=== PATIENT | male | born 1985 | race African-American/Black ===

== ENCOUNTER 2016-05-02 08:33 | Emergency (ER) | payer BC ==
[2016-05-02 08:46] VITALS: TEMP 97.9; BMI 33.1
[2016-05-02] MEDS ORDERED: HYDROmorphone 1 MG INJECTION IV ONE (09:02)
[2016-05-02] MEDS ORDERED: ONDANSETRON HCL 4 MG/2 ML VIAL IV ONE (09:02)
[2016-05-02] MEDS ORDERED: ONDANSETRON HCL 4 MG/2 ML VIAL IV PRN (09:03)
[2016-05-02] MEDS ORDERED: NS 1,000 ML IV ONE (09:03)
[2016-05-02] MEDS ORDERED: HYDROmorphone 1 MG INJECTION IV PRN (09:03)
--- NOTE | 2016-05-02 09:07 | EDPRACDOC ---
- General Information Chief Complaint: Abdominal Pain Stated Complaint: ABD PAIN Time Seen by Provider: 05/02/16 08:56 Information Source: Patient Mode Of Arrival: Car Home Medications: Home Medications Ketorolac Tromethamine 10 mg PO Q6H PRN #20 tab 05/02/16 Allergies/Adverse Reactions: Allergies Allergy/AdvReac Type Severity Reaction Status Date / Time No Known Allergies Allergy Verified 05/02/16 08:46 - History of Present Illness Onset: SEVERAL MONTHS Pain Location: Reports: Diffuse Pain Context: Reports: Spontaneous Pain Severity: Mild Pain Quality: Reports: Aching Adult Abdominal History: Reports: Abdominal Surgery Modifying Factors: improves with: Nothing Oral Intake: Normal Urinary Output: Normal ED Past Medical History - History Reviewed Yes Nurses notes reviewed and agree except as marked - Patient Medical History Respiratory History: Reports: Asthma (DOES NOT USE INHALERS) GI/ History: Reports: Gastroesophageal Reflux Musculoskeletal History: Reports: Arthritis (KNEES) - Family Medical History Reports: Hypertension (FATHER), Diabetes (FATHER), Cancer (MOTHER BREAST). Denies: Stroke, Cardiac Disorders - Social Medical History Smoking Status: Never smoker EDM Review of Systems - Review of Systems ROS Negative Except as Marked: Yes All systems reviewed and were negative except as marked - Physical Exam Constitutional: Alert (Awake), No apparent distress Oriented to: Time, Person, Place Last recorded Vital Signs: Last Vital Signs Temp 97.9 F 05/02/16 08:43 Pulse 68 05/02/16 10:30 Resp 16 05/02/16 10:30 BP 138/64 05/02/16 10:30 Pulse Ox 95 05/02/16 10:30 Oxygen Pulse Oxygen Saturation 95 O2 Device Room Air Oxygen Flow Rate Fraction of Inspired Oxygen ( FIO2) - HEENT Head: Normal ( normocephalic) Eye Exam: Normal (PERRL, EOMI, Sclera white) Oropharynx: Normal (Pharynx:Moist without exudate,Gums-no swelling) Tympanic Membrane: Normal ENT EAC: Normal TMJ: Normal Nose: No Symptoms Reported (septum midline) Neck: Normal (FROM, trachea at midline) - Respiratory/Cardiovascular Respiratory: Normal - CTA (BBS clear to auscultation without adventitious sounds ) Cardiovascular: Normal (RRR without murmur, gallop or rub) - GI Auscultation: Normal (NABS) Palpation: Normal (Soft,No rebound or guarding, non distended) Tenderness: Non tender Arriaga's Sign: Negative - Musculoskeletal Back: Normal (Non-Tender) Extremities: Normal (Normal tone, Pulses 2+ No cyanosis or edema, FROM) - Integumentary Skin: Normal, Warm, Dry Lymphatics: Normal (no adenopathy) - Neurologic Memory Impaired: Normal Motor Function: Normal (Normal tone, Pulses 2+ No cyanosis or edema, FROM) Cranial Nerve: Normal (CN II-X11 intact sensation, strength 5/5) Cerebellar: Normal Mood Description: Normal Perception: Normal - Results 05/02/16 08:58 05/02/16 08:58 WBC 5.5 xk/uL (3.8-10.8) 05/02/16 08:58 RBC 5.18 xM/uL (4.70-6.10) 05/02/16 08:58 Hgb 14.9 g/dL (14.0-18.0) 05/02/16 08:58 Hct 44.7 % (42-52) 05/02/16 08:58 MCV 86 fL (80-94) 05/02/16 08:58 MCH 28.8 pg (27-32) 05/02/16 08:58 MCHC 33.4 g/dl (33-36) 05/02/16 08:58 RDW 14.1 % (11.5-14.5) 05/02/16 08:58 Plt Count 240 xk/uL (130-400) 05/02/16 08:58 MPV 9.1 fL (7.4-10.4) 05/02/16 08:58 Neut % (Auto) 60.2 % (45-76) 05/02/16 08:58 Lymph % (Auto) 29.7 % (17-44) 05/02/16 08:58 [place] % (Auto) 6.7 % (3-10) 05/02/16 08:58 Eos % (Auto) 2.9 % (0-5) 05/02/16 08:58 Baso % (Auto) 0.5 % (0-2) 05/02/16 08:58 Absolute Neuts (auto) 3.30 xk/uL (1.7-8.2) 05/02/16 08:58 Absolute Lymphs (auto) 1.60 xk/uL (0.65-4.75) 05/02/16 08:58 PT 10.2 SEC (9.2-11.2) 05/02/16 08:58 INR 1.0 05/02/16 08:58 Sodium 139 mEq/L (137-146) 05/02/16 08:58 Potassium 4.2 mEq/L (3.5-5.1) 05/02/16 08:58 Chloride 102 mEq/L (98-107) 05/02/16 08:58 Carbon Dioxide 28 mMOL/L (22-33) 05/02/16 08:58 Anion Gap 13 mEq/L (8-16) 05/02/16 08:58 BUN 14 MG/DL (9-20) 05/02/16 08:58 Creatinine 1.00 MG/DL (0.66-1.25) 05/02/16 08:58 Estimated GFR (MDRD) > 60 mL/min (>=60) 05/02/16 08:58 Glucose 91 MG/DL (70-99) 05/02/16 08:58 Calculated Osmolality 269 MOs/Kg (270-290) L 05/02/16 08:58 Calcium 9.2 MG/DL (8.4-10.2) 05/02/16 08:58 Total Bilirubin 0.7 MG/DL (0.2-1.3) 05/02/16 08:58 AST 664 IU/L (17-59) H 05/02/16 08:58 ALT 289 IU/L (21-72) H 05/02/16 08:58 Alkaline Phosphatase 85 IU/L (38-126) 05/02/16 08:58 Total Protein 7.9 G/DL (6.3-8.2) 05/02/16 08:58 Albumin 4.5 G/DL (3.5-5.0) 05/02/16 08:58 Lipase 89 U/L (23-300) 05/02/16 08:58 Urine Color Yellow 05/02/16 08:50 Urine Clarity Clear 05/02/16 08:50 Urine pH 6.0 (5.0-8.0) 05/02/16 08:50 Ur Specific [place] 1.020 (1.003-1.035) 05/02/16 08:50 Urine Protein Neg (NEG/TRACE) 05/02/16 08:50 Urine Glucose (UA) Neg (NEGATIVE) 05/02/16 08:50 Urine Ketones Neg (NEGATIVE) 05/02/16 08:50 Urine Occult Blood Neg (NEG/TRACE) 05/02/16 08:50 Urine Nitrite Neg (NEGATIVE) 05/02/16 08:50 Urine Bilirubin Neg (NEGATIVE) 05/02/16 08:50 Urine Urobilinogen <2.0 MG/DL (0-1) 05/02/16 08:50 Ur Leukocyte Esterase Neg (NEGATIVE) 05/02/16 08:50 Urine RBC 0-2 (0-2) 05/02/16 08:50 Urine WBC 0-2 (0-2) 05/02/16 08:50 Urine Mucus Occ (NEG/OCC) 05/02/16 08:50 Lab Results 05/02/16 05/02/16 05/02/16 08:58 08:58 08:58 WBC 5.5 RBC 5.18 Hgb 14.9 Hct 44.7 MCV 86 MCH 28.8 MCHC 33.4 RDW 14.1 Plt Count 240 MPV 9.1 Neut % (Auto) 60.2 Lymph % (Auto) 29.7 [place] % (Auto) 6.7 Eos % (Auto) 2.9 Baso % (Auto) 0.5 Absolute Neuts (auto) 3.30 Absolute Lymphs (auto) 1.60 PT 10.2 INR 1.0 Sodium 139 Potassium 4.2 Chloride 102 Carbon Dioxide 28 Anion Gap 13 BUN 14 Creatinine 1.00 Estimated GFR (MDRD) > 60 Glucose 91 Calculated Osmolality 269 L Calcium 9.2 Total Bilirubin 0.7 AST 664 H ALT 289 H Alkaline Phosphatase 85 Total Protein 7.9 Albumin 4.5 Lipase 89 Urine Color Urine Clarity Urine pH Ur Specific [place] Urine Protein Urine Glucose (UA) Urine Ketones Urine Occult Blood Urine Nitrite Urine Bilirubin Urine Urobilinogen Ur Leukocyte Esterase Urine RBC Urine WBC Urine Mucus 05/02/16 08:50 WBC RBC Hgb Hct MCV MCH MCHC RDW Plt Count MPV Neut % (Auto) Lymph % (Auto) [place] % (Auto) Eos % (Auto) Baso % (Auto) Absolute Neuts (auto) Absolute Lymphs (auto) PT INR Sodium Potassium Chloride Carbon Dioxide Anion Gap BUN Creatinine Estimated GFR (MDRD) Glucose Calculated Osmolality Calcium Total Bilirubin AST ALT Alkaline Phosphatase Total Protein Albumin Lipase Urine Color Yellow Urine Clarity Clear Urine pH 6.0 Ur Specific [place] 1.020 Urine Protein Neg Urine Glucose (UA) Neg Urine Ketones Neg Urine Occult Blood Neg Urine Nitrite Neg Urine Bilirubin Neg Urine Urobilinogen <2.0 Ur Leukocyte Esterase Neg Urine RBC 0-2 Urine WBC 0-2 Urine Mucus Occ - EKG EKG #1 [place]: Normal Rhythm: NSR Block: None Hypertrophy: None ST: Normal Decision Time to Discharge: 10:58 - Departure Yes I personally saw and evaluated the patient. Disposition: Home Condition: Good Final Diagnosis: Abdominal pain, ELEVATED LFT Instructions: Acute Abdominal Pain (ED) Education/Counseling Given To: Patient Education/Counseling Given Regarding: Diagnosis, Treatment Referrals: Laura Acevedo PA [Primary Care Provider] - One Week Mainor Mcdowell MD [Staff Provider No Admit] - One Week Prescriptions: Ketorolac Tromethamine 10 mg PO Q6H PRN #20 tab PRN Reason: Pain
[2016-05-02 09:25] LABS: AUTOMATED BASOPHIL 0.5 % (0-2); AUTOMATED EOSINOPHIL 2.9 % (0-5); AUTOMATED LYMPH 29.7 % (17-44); AUTOMATED MONOCYTE 6.7 % (3-10); AUTOMATED NEUTROPHIL 60.2 % (45-76); MPV 9.1 fL (7.4-10.4)
[2016-05-02 09:37] LABS: LEUKOCYTES/URINE NEG (NEGATIVE); NITRITE/URINE NEG (NEGATIVE); RBC/URINE 0-2 (0-2); URINE OCCULT BLOOD NEG (NEG/TRACE); WBC/URINE 0-2 (0-2)
[2016-05-02 09:40] LABS: BLOOD UREA NITROGEN 14 MG/DL (9-20); CALCIUM 9.2 MG/DL (8.4-10.2); CALCULATED OSMOLALITY 269 MOs/Kg (270-290); CHLORIDE 102 mEq/L (98-107); GLUCOSE 91 MG/DL (70-99); SODIUM LEVEL 139 mEq/L (137-146); TOTAL PROTEIN 7.9 G/DL (6.3-8.2)
[2016-05-02] MEDS ORDERED: Pharmacy Review for Metformin - IV Contrast Given SCH (10:00)
--- NOTE | 2016-05-02 10:27 | DIRPT ---
CLINICAL DATA: Nausea, abdominal pain with worsening last 2 days, elevated liver enzymes EXAM: CT ABDOMEN AND PELVIS WITH CONTRAST TECHNIQUE: Multidetector CT imaging of the abdomen and pelvis was performed using the standard protocol following bolus administration of intravenous contrast. CONTRAST: 100 cc Isovue COMPARISON: 04/21/2014 FINDINGS: Lung bases are unremarkable. Sagittal images of the lumbar spine shows minimal degenerative changes lower thoracic spine. Subtle minimal cystic degenerative changes are noted superior aspect of the left femoral head. Enhanced liver shows no focal mass. No intrahepatic biliary ductal dilatation. No calcified gallstones are noted within gallbladder. Abdominal aorta is unremarkable. Enhanced pancreas spleen and adrenal glands are unremarkable. Enhanced kidneys are symmetrical in size. No pericholecystic fluid. No nephrolithiasis. No hydronephrosis or hydroureter. No small bowel obstruction. Midline anterior abdominal wall scarring is noted. No ascites or free air. No adenopathy. Normal appendix. There is no pericecal inflammation. The terminal ileum is unremarkable. Prostate gland and seminal vesicles are unremarkable. The urinary bladder is unremarkable. No pelvic ascites or adenopathy. Small nonspecific bilateral inguinal lymph nodes. IMPRESSION: 1. No acute inflammatory process within abdomen or pelvis. 2. No pericecal inflammation. Normal appendix. 3. No small bowel obstruction. 4. No ascites or free air. 5. No hydronephrosis or hydroureter. Electronically Signed By: Jhon Denton M.D. On: 05/02/2016 10:24
[2016-05-02 11:05] VITALS: BP 131/79; PULSE 61
== END 2016-05-02 11:10 | disposition home or self-care (01) ==
LOC: ED 08:33
DX: R10.9 Unspecified abdominal pain (principal); R79.89 Other specified abnormal findings of blood chemistry
CPT/HCPCS: 36415; 74177; 80053; 81001; 83690; 85025; 85610; 93005; 96361; 96374; 96375; 99283; A9698; J1170; J2405